=== PATIENT | male | born 1970 | race Two or more races ===

== ENCOUNTER 2020-08-14 16:35 | Outpatient (CLI) | payer OTHER | END 2020-08-14 16:39 | disposition home or self-care (01) | LOC: LAB 16:35 | DX: Z20.828 Contact with and (suspected) exposure to other viral communicable diseases (principal) ==

== ENCOUNTER → 2020-08-18 10:28 | Outpatient (CLI) | payer OTHER | END | disposition home or self-care (01) | LOC: LAB 10:28 | PROVIDERS: ATTEND General Practice | DX: Z20.828 Contact with and (suspected) exposure to other viral communicable diseases (principal) ==